=== PATIENT | female | born 1960 | race Hispanic/Latino ===

== ENCOUNTER → 2017-12-30 | Outpatient (CLI) | payer OTHER | LOC: MAMMO 08:16 | PROVIDERS: ATTEND Internal Medicine | DX: Z12.31 Encounter for screening mammogram for malignant neoplasm of breast (principal) | CPT/HCPCS: 77067 ==

== ENCOUNTER → 2018-09-23 | Outpatient (CLI) | payer OTHER ==
--- NOTE | 2018-09-23 12:25 | Diagnostic Imaging Report ---
Exam: Lumbar spine complete, sacrum 2 views History: Chronic low back pain Comparison: None. Findings: There are 5 nonrib-bearing lumbar-type vertebral bodies. No acute, displaced fracture or subluxation. Advanced disc space narrowing L3-4 and L4-5. Less severe changes at L2-3 and L5-S1. Marginal osteophytosis and endplate sclerosis. Bilateral facet arthropathy at L4-5 and L5-S1. Sacroiliac joints are intact. No cortical step-off of the sacrum or coccyx on the lateral radiograph. Sacral foramina appear intact superiorly. Impression: No acute osseous abnormalities. Advanced degenerative disc changes and facet arthropathy of the lower lumbar spine as detailed above. Signed by: Dr. Lev Gray M.D. on 09/23/2018 12:22 PM
== END ==
LOC: RAD 11:13
PROVIDERS: ATTEND Internal Medicine
DX: S33.5XXA Sprain of ligaments of lumbar spine, initial encounter (principal)
CPT/HCPCS: 72110; 72220

== ENCOUNTER → 2019-04-21 | Outpatient (CLI) | payer OTHER ==
--- NOTE | 2019-05-07 14:30 | Diagnostic Imaging Report ---
#[id number] - MGSCRBIL #BILATERAL DIGITAL SCREENING MAMMOGRAM WITH CAD: 04/21/2019 CLINICAL: Routine screening. Comparison is made to exam dated: 12/30/2017 mammogram - [facility]. There are scattered fibroglandular elements in both breasts. Current study was also evaluated with a Computer Aided Detection (CAD) system. There are benign lymph nodes in both breasts. There also is a benign calcification in the right breast. No significant masses, calcifications, or other findings are seen in either breast. There has been no significant interval change. IMPRESSION: BENIGN There is no mammographic evidence of malignancy. A 1 year screening mammogram is recommended. The patient will be notified by letter of the results. GUICHO licona/vinicio:05/07/2019 10:18:59 Occupational Therapy Technician: Jacinda PAZ)(Patrick), [facility] letter sent: Compared to Prior B9 Mammogram BI-RADS: 2 Benign
== END ==
LOC: MAMMO 10:04
PROVIDERS: ATTEND Internal Medicine
DX: Z12.31 Encounter for screening mammogram for malignant neoplasm of breast (principal)
CPT/HCPCS: 77067